=== PATIENT | male | born 1970 | race African-American/Black ===

== ENCOUNTER → 2016-12-30 | Day surgery (SDC) | payer OTHER ==
[~2016-12-30] MED LIST: AMITRIPTYLINE H50 MG PO; COZAAR100 MG PO; FLEXERIL10 MG PO; FLOMAX0.4 M1 PO; GABAPENTIN300 MG PO; GABAPENTIN600 MG PO; HYDROCODON-ACE1 EAC9; IBUPROFEN800 MG PO; LIPITOR PO; LIPITOR20 MG PO; LOSARTAN POTASS50 MG PO; METOPROLOL TAR25 MG PO; NAPROSYN375 MG PO; NEURONTIN800 MG DOB; ONDANSETRON HCL4 M1 PO; PRILOSEC PO; PYRIDIUM100 MG PO; ZOFRAN PO; ZYRTEC10 M2 PO
--- NOTE | ~2016-12-30 | OR ---
Unit #: [id number] #: [id number] Patient: STELLA ZHAO [id number] [address] [id number] [id number] MR#: [id number] NAME: STELLA ZHAO ROOM: Date of Procedure: 12/30/2016 Admission Date: 12/30/2016 Surgeon: Ezekiel Lugo M.D. : 1970 Attending Physician: Ezekiel Lugo M.D. Primary Care Physician: Charlotte Restrepo A.P.R.N. OPERATIVE REPORT PREOPERATIVE DIAGNOSES 1. Chronic persistent abdominal pain. 2. Change in bowel movements. PROCEDURES PERFORMED 1. Diagnostic laparoscopy. 2. Laparoscopic adhesiolysis. NEEDLEWORKER Dar Frye M.D. ANESTHESIA General anesthesia. ESTIMATED BLOOD LOSS Minimal. IV FLUIDS 500 crystalloid. COMPLICATIONS None. INDICATIONS FOR PROCEDURE The patient is a 46-year-old gentleman, who is 2 years status post laparoscopic ventral hernia, presents with persistent abdominal pain. He presents with change in bowel habits. He does have a history of irritable bowel disease. DESCRIPTION OF PROCEDURE The patient was taken to the operative theater and placed in supine position. General anesthesia was induced. The abdomen was prepped and draped. A 5-mm Optiview trocar was placed in the left upper quadrant without difficulty. The abdomen was insufflated to 15 mmHg with CO2. Under direct vision, I placed left lower quadrant 10 mm. General inspection of the abdomen revealed the multiple adhesions to the mesh. These were taken down with combination of sharp and blunt dissection. Hemostasis was obtained. The mesh appeared to be in good position. I saw no evidence of recurrence. There was no bowel that was associated with a mesh. I saw no other abnormalities. I identified the small bowel proximal from the cecum. There was no fluid in the abdomen. The ports were removed and the wound was closed with 4-0 Vicryl. The patient Unit #: [id number] #: [id number] Patient: STELLA ZHAO tolerated the procedure well and sent to recovery room in good condition. Dictated by... Latha Shelton/dionisio TD: 12/30/2016 13:13 JOB #: [id number] OPERATIVE REPORT Page 1 of 1 X Ezekiel Lugo MD PROCEDURE OPERATIVE NOTE
== END | disposition home or self-care (01) ==
LOC: CSUR 07:25
DX: K66.0 Peritoneal adhesions (postprocedural) (postinfection) (principal); R10.9 Unspecified abdominal pain; K21.9 Gastro-esophageal reflux disease without esophagitis; I10 Essential (primary) hypertension; E78.00 Pure hypercholesterolemia, unspecified; G47.30 Sleep apnea, unspecified; E78.5 Hyperlipidemia, unspecified; G89.29 Other chronic pain; M10.9 Gout, unspecified; Z88.8 Allergy status to other drugs, medicaments and biological substances; Z79.1 Long term (current) use of non-steroidal anti-inflammatories (NSAID); Z79.899 Other long term (current) drug therapy
CPT/HCPCS: J0330; J0360; J0690; J1885; J2250; J2405; J2710; J3010